=== PATIENT | female | born 1990 | race Caucasian/White ===

== ENCOUNTER 2020-03-05 12:11 | Emergency (ER) | payer MEDICAID ==
[~2020-03-05] VITALS: Ht 172.7 cm; Wt 59.0 kg
[2020-03-05 12:18] VITALS: BP 129/83
[2020-03-05] MEDS ORDERED: ACETAMINOPHEN 325MG TABLET PO ONE (12:45)
[2020-03-05] MEDS ORDERED: TETANUS, DIPHTHERIA, PERTUSSIS VAC/PF 0.5ML (>7YR OLD) IM ONE (13:00)
== END 2020-03-05 13:12 | disposition home or self-care (01) ==
LOC: ER 12:11
DX: S00.83XA Contusion of other part of head, initial encounter (principal); W22.8XXA Striking against or struck by other objects, initial encounter; Y93.E9 Activity, other interior property and clothing maintenance; Y92.038 Other place in apartment as the place of occurrence of the external cause; Z23 Encounter for immunization
CPT/HCPCS: 90471; 90715; 93005; 99283

== ENCOUNTER 2021-03-05 23:05 | Emergency (ER) | payer SELFPAY ==
[~2021-03-05] VITALS: Ht 167.6 cm; Wt 64.0 kg
[2021-03-06] MEDS ORDERED: ONDANSETRON HCL 4MG/2ML INJ IV STA (02:09)
[2021-03-06] MEDS ORDERED: SODIUM CHLORIDE 0.9% 1,000 ML IV ONE (02:15)
[2021-03-06 02:47] LABS: CLARITY URINE CLOUDY (CLEAR); COLOR URINE YELLOW (YELLOW); KETONES URINE 4+ (NEGATIVE); LEUKOCYTE ESTERASE URINE NEGATIVE (NEGATIVE); NITRITE URINE NEGATIVE (NEGATIVE); OCCULT BLOOD URINE 3+ (NEGATIVE); PH URINE 5.5 (4.5-8.0); PROTEIN URINE 1+ (NEGATIVE); SPECIFIC GRAVITY URINE 1.044 (1.005-1.030)
[2021-03-06 02:49] LABS: BASOPHILS % 0.4 % (0.0-2.0); EOSINOPHILS % 0.1 % (0.0-5.0); LYMPHOCYTES % 7.4 % (20.0-50.0); MEAN CORPUSCULAR HEMOGLOBIN 28.2 pg (28.0-32.0); MEAN CORPUSCULAR VOLUME 86.8 fL (81.0-99.0); MEAN PLATELET VOLUME 7.9 fl (7.4-10.4); NEUTROPHILS % 86.1 % (40.0-76.0); PLATELET 297 x1000/uL (130-400); RED BLOOD CELL COUNT 4.26 mill/uL (4.2-5.4); RED CELL DISTRIBUTION WIDTH 16.4 % (11.6-14.6)
[2021-03-06 02:50] LABS: CHLORIDE 107 mEq/L (98-107)
[2021-03-06 02:57] LABS: HCG SCREEN NEGATIVE
[2021-03-06] MEDS ORDERED: NITR-87 MT (03:54)
[2021-03-06 04:15] VITALS: BP 101/65
== END 2021-03-06 04:53 | disposition home or self-care (01) ==
LOC: ER 23:05
DX: R11.2 Nausea with vomiting, unspecified (principal); N39.0 Urinary tract infection, site not specified; R00.1 Bradycardia, unspecified; R05.9 Cough, unspecified; R19.7 Diarrhea, unspecified; Z71.89 Other specified counseling
CPT/HCPCS: 36415; 71045; 80053; 81003; 81025; 83690; 84703; 85025; 93005; 96361; 96374; 99284; J2405; J7030